=== PATIENT | male | born 1985 | race Caucasian/White ===

== ENCOUNTER 2017-01-26 01:13 | Observation (INO) | payer MEDICAID, SELFPAY ==
[~2017-01-26] VITALS: Ht 177.8 cm; Wt 68.8 kg
[2017-01-26] MEDS ORDERED: LORazepam 1MG TABLET ONE (01:48)
[2017-01-26] MEDS ORDERED: HYDROcodone/APAP 5/325 TABLET ONE (01:49)
[2017-01-26] MEDS ORDERED: LORazepam 1MG TABLET PO ONE (02:00)
[2017-01-26] MEDS ORDERED: HYDROcodone/APAP 5/325 TABLET PO ONE (02:00)
[2017-01-26 03:32] LABS: HEMATOCRIT 48.9 % (39.2-51.8); HEMOGLOBIN 16.7 g/dL (13.7-18.0); WHITE BLOOD COUNT 12.4 x10^3/uL (3.4-10)
[2017-01-26] MEDS ORDERED: NICOTINE 14MG/24 HR PATCH.TD24 ONE (03:44)
[2017-01-26] MEDS ORDERED: ZIPRASIDONE 20 MG INJ IM ONE ×2 (03:44→04:00)
[2017-01-26] MEDS ORDERED: NICOTINE 14MG/24 HR PATCH.TD24 TD ONE (04:00)
[2017-01-26 04:02] LABS: ACETAMINOPHEN < 2 mcg/mL (10-30); BLOOD UREA NITROGEN 25 mg/dL (7-18)
[2017-01-26 04:29] LABS: DAU SCREEN DISCLAIMER
[2017-01-26] MEDS ORDERED: ACETAMINOPHEN 325 MG TABLET PO PRN (07:30)
[2017-01-26] MEDS ORDERED: ZIPRASIDONE 20 MG INJ IM PRN (07:30)
[2017-01-26 08:15] VITALS: BP 110/56
[2017-01-26 08:16] VITALS: BP 110/56
[2017-01-26] MEDS: NICOTINE 14MG/24 HR PATCH.TD24 TD SCH (10:00)
[2017-01-26] MEDS: OLANZAPINE 2.5 MG TABLET PO SCH ×2 (10:04→21:25)
[2017-01-26] MEDS: HYDROcodone/APAP 5/325 TABLET PO PRN ×2 (15:00→21:24)
[2017-01-26] MEDS: LORazepam 0.5MG TABLET PO PRN (17:40)
[2017-01-26] MEDS: IBUPROFEN 200 MG TABLET PO PRN (17:40)
[2017-01-26 20:30] VITALS: BP 115/66
[2017-01-26] MEDS ORDERED: ZOLPIDEM 5MG TABLET PO PRN (21:00)
[2017-01-27] MEDS: LORazepam 0.5MG TABLET PO PRN ×2 (00:50→18:14)
[2017-01-27 05:21] LABS: HEMOGLOBIN 14.9 g/dL (13.7-18.0); WHITE BLOOD COUNT 6.3 x10^3/uL (3.4-10)
[2017-01-27] MEDS: NICOTINE 14MG/24 HR PATCH.TD24 TD SCH (07:30)
[2017-01-27] MEDS: OLANZAPINE 2.5 MG TABLET PO SCH (07:46)
[2017-01-27] MEDS: HYDROcodone/APAP 5/325 TABLET PO PRN (07:47)
[2017-01-27 07:49] VITALS: BP 113/61
[2017-01-27] MEDS: IBUPROFEN 200 MG TABLET PO PRN (15:33)
== END 2017-01-27 18:30 ==
LOC: ED 06:49 → EDIP 06:50 → ED 07:02 → 3E 07:58
PROVIDERS: ADMIT Internal Medicine
DX: F15.950 Other stimulant use, unspecified with stimulant-induced psychotic disorder with delusions (principal); G93.40 Encephalopathy, unspecified; R41.0 Disorientation, unspecified; D72.829 Elevated white blood cell count, unspecified; F19.10 Other psychoactive substance abuse, uncomplicated; F17.200 Nicotine dependence, unspecified, uncomplicated; F10.10 Alcohol abuse, uncomplicated; F22 Delusional disorders; F41.9 Anxiety disorder, unspecified; F12.929 Cannabis use, unspecified with intoxication, unspecified
CPT/HCPCS: 36415; 80048; 80307; 80329; 82040; 85025; 96372; 99285; G0378; J3486; G0480

== ENCOUNTER 2017-02-06 13:07 | Emergency (ER) | payer MEDICAID ==
[~2017-02-06] VITALS: Ht 177.8 cm; Wt 72.0 kg
[2017-02-06 13:08] VITALS: BP 150/84
[2017-02-06] MEDS ORDERED: KETOROLAC 30 MG/1 ML ONE (13:45)
[2017-02-06] MEDS ORDERED: KETOROLAC 30 MG/1 ML IM ONE (14:00)
== END 2017-02-06 14:11 | disposition home or self-care (01) ==
LOC: ED 14:05
DX: M79.652 Pain in left thigh (principal); G89.29 Other chronic pain
CPT/HCPCS: 96372; 99283; J1885

== ENCOUNTER 2017-12-05 12:09 | Emergency (ER) | payer MEDICAID ==
[~2017-12-05] VITALS: Ht 177.8 cm; Wt 70.0 kg
[2017-12-05] MEDS ORDERED: IBUPROFEN 200 MG TABLET ONE (13:42)
[2017-12-05 13:52] VITALS: BP 137/67
[2017-12-05] MEDS ORDERED: IBUPROFEN 800 MG TABLET PO PRN (14:00)
== END 2017-12-05 14:07 | disposition home or self-care (01) ==
LOC: ED 13:59
DX: S63.633A Sprain of interphalangeal joint of left middle finger, initial encounter (principal); F17.200 Nicotine dependence, unspecified, uncomplicated; V19.9XXA Pedal cyclist (driver) (passenger) injured in unspecified traffic accident, initial encounter; Y93.89 Activity, other specified; Y99.8 Other external cause status; Y92.410 Unspecified street and highway as the place of occurrence of the external cause
CPT/HCPCS: 99284

== ENCOUNTER 2017-12-06 09:55 | Emergency (ER) | payer MEDICAID ==
[~2017-12-06] VITALS: Ht 177.8 cm; Wt 70.1 kg
[2017-12-06 09:59] VITALS: BP 148/80
== END 2017-12-06 11:41 | disposition home or self-care (01) ==
LOC: ED 11:35
DX: Z20.6 Contact with and (suspected) exposure to human immunodeficiency virus [HIV] (principal)
CPT/HCPCS: 99281

== ENCOUNTER 2017-12-14 11:17 | Emergency (ER) | payer OTHER, MEDICAID ==
[~2017-12-14] VITALS: Ht 177.8 cm; Wt 78.0 kg
[2017-12-14] MEDS ORDERED: SODIUM CHLORIDE FLUSH 10ML SYR IVF ONE (12:00)
[2017-12-14 12:11] LABS: BASOPHILS # (AUTO) 0.08 x10^3/uL (0-0.1); BASOPHILS % (AUTO) 1 % (0-1); EOSINOPHILS # (AUTO) 0.03 x10^3/uL (0-0.4); EOSINOPHILS % (AUTO) 0 % (1-7); LYMPHOCYTES # (AUTO) 1.61 x10^3/uL (1-3.4); LYMPHOCYTES % (AUTO) 21 % (22-44); MD NO; MEAN CORPUSCULAR HEMOGLOBIN 30.5 pg (27.5-34.5); MEAN CORPUSCULAR HGB CONC 33.8 g/dL (33.2-36.2); MEAN CORPUSCULAR VOLUME 90.1 fL (81-97); MEAN PLATELET VOLUME 8.6 fL (7.4-10.4); MONOCYTES # (AUTO) 0.42 x10^3/uL (0.2-0.8); MONOCYTES % (AUTO) 5 % (2-9); NEUTROPHILS # (AUTO) 5.67 x10^3/uL (1.8-6.8); NEUTROPHILS % (AUTO) 73 % (42-75); PLATELET COUNT 282 x10^3/uL (130-400); RED BLOOD COUNT 5.16 x10^6/uL (4.38-5.82); RED CELL DISTRIBUTION WIDTH 12.7 % (9.4-14.8)
[2017-12-14 12:14] LABS: ALANINE AMINOTRANSFERASE 26 U/L (12-78); ALBUMIN 3.7 g/dL (3.4-5.0); ANION GAP 6 mmol/L (5-15); CALCIUM 8.7 mg/dL (8.5-10.1); CHLORIDE 108 mmol/L (98-107); CREATININE 0.94 mg/dL (0.7-1.3)
[2017-12-14 12:16] LABS: ALKALINE PHOSPHATASE 87 U/L (45-117); BILIRUBIN,TOTAL 0.6 mg/dL (0.2-1.0); SALICYLATE LEVEL < 1.7 mg/dL (2.8-20.0); TOTAL PROTEIN 6.9 g/dL (6.4-8.2)
[2017-12-14 12:18] LABS: AMPHETAMINE SCREEN, URINE Positive (Negative); BARBITURATE SCREEN, URINE Negative (Negative); BENZODIAZEPINE SCREEN, URINE Negative (Negative); CANNABINOID SCREEN, URINE Positive (Negative); COCAINE SCREEN, URINE Negative (Negative); METHADONE SCREEN, URINE Negative (Negative); OPIATE SCREEN, URINE Negative (Negative)
[2017-12-14 12:19] VITALS: BP 128/79
[2017-12-14 12:19] LABS: ACETAMINOPHEN < 2 mcg/mL (10-30)
[2017-12-14] MEDS ORDERED: OLAN15TA9 PO (12:23)
[2017-12-14] MEDS ORDERED: PRAZ1CAP2 PO (12:23)
[2017-12-14] MEDS ORDERED: BUPR100T11 PO (12:23)
[2017-12-14] MEDS ORDERED: CHLO50TA6 PO (12:23)
[2017-12-14] MEDS ORDERED: TRAZ100T15 PO (12:23)
== END 2017-12-14 15:20 | disposition home or self-care (01) ==
LOC: ED 12:14
DX: T14.91XA Suicide attempt, initial encounter (principal); Z79.899 Other long term (current) drug therapy; Y92.149 Unspecified place in prison as the place of occurrence of the external cause; X83.8XXA Intentional self-harm by other specified means, initial encounter; Y93.89 Activity, other specified; Y99.8 Other external cause status
CPT/HCPCS: 36415; 70498; 80053; 80307; 80329; 85025; 99285; G0480

== ENCOUNTER 2018-06-24 10:43 | Emergency (ER) | payer MEDICAID, OTHER ==
[~2018-06-24] VITALS: Ht 167.6 cm; Wt 78.7 kg
[~2018-06-24 10:43] MED LIST: BUPR100T11 PO; CHLO50TA6 PO; OLAN15TA9 PO; PRAZ1CAP2 PO; TRAZ-137 PO
[2018-06-24 10:50] VITALS: BP 109/70
[2018-06-24] MEDS ORDERED: CEFTRIAXONE 250 MG ONE (11:12)
[2018-06-24] MEDS ORDERED: AZITHROMYCIN 500 MG TABLET ONE (11:12)
[2018-06-24] MEDS ORDERED: CEFTRIAXONE 250 MG IM ONE (11:30)
[2018-06-24] MEDS ORDERED: AZITHROMYCIN 250 MG TABLET PO ONE (11:30)
--- NOTE | 2018-06-24 11:48 | NUR ---
Patient/Caregiver given discharge instructions and they have confirmed that they understand the instructions. Patient ambulatory with steady gait. PT LEFT WITH ALL PERSONAL BELONGINGS.
== END 2018-06-24 11:50 | disposition home or self-care (01) ==
LOC: ED 11:25
DX: N34.1 Nonspecific urethritis (principal); B35.6 Tinea cruris
CPT/HCPCS: 87491; 87591; 96372; 99283; J0696

== ENCOUNTER 2020-01-22 12:14 | Emergency (ER) | payer MEDICAID ==
[~2020-01-22] VITALS: Ht 175.3 cm; Wt 74.5 kg
[~2020-01-22 12:14] MED LIST changes: -TRAZ-137 PO; +TRAZ-175 PO
[2020-01-22 12:16] VITALS: BP 146/79
--- NOTE | 2020-01-22 12:22 | NUR ---
PATIENT WALKED BACK FROM TRIAGE WITH CHIEF COMPLAINT OF LEFT THIGH WOUNDS X1 MONTH. PATIENT STATES THEY HAVE NOT GOT ANY BETTER SINCE FIRST APPEARING. PATIENT STATES HE MOVED AND WAS GIVEN SOME BLANKETS FROM A FRIEND WHICH HE DIDN'T WASH AND BELIEVES HE GOT SOMETHING FROM THE BLANKETS. 3 WOUNDS LOCATED ON THE UPPER LEFT THIGH DISTALLY, FEEL WARM TO THE TOUCH, 2 WOUNDS THE SIZE OF QUARTERS AND THE THIRD WOUND THE SIZE OF A NICKEL, SURROUNDING SKIN IS RED.
[2020-01-22] MEDS ORDERED: NEOSPORIN OINT. PKT 1 PACKET ONE (13:03)
--- NOTE | 2020-01-22 13:20 | NUR ---
Patient given discharge instructions and they have confirmed that they understand the instructions, no questions,. Patient ambulatory with steady gait to discharge to desk.
== END 2020-01-22 13:21 | disposition home or self-care (01) ==
LOC: ED 12:50
DX: L03.116 Cellulitis of left lower limb (principal); R11.0 Nausea; R50.9 Fever, unspecified
CPT/HCPCS: 99283

== ENCOUNTER 2020-08-04 09:03 | Emergency (ER) | payer MEDICAID ==
[~2020-08-04] VITALS: Ht 175.3 cm; Wt 71.7 kg
--- NOTE | 2020-08-04 09:33 | NUR ---
PT BROUGHT BACK TO ROOM FROM TRIAGE. PT STATES THAT HE HAS BEEN FEELING SUICIDAL AND DEPRESSED FOR THE PAST COUPLE MONTHS. PT HAS BEEN CUTTING FOREARM WHEN DEPRESSED. PT DOES NOT HAVE ANY ACTIVE PLANS TO KILL HIMSELF. BELONGINGS PLACED IN LOCKER. TIME BROKER NOTIFIED THAT SITTER IS NEEDED.
[2020-08-04 09:47] LABS: BASOPHILS % (AUTO) 1 % (0-1); EOSINOPHILS % (AUTO) 1 % (1-7); LYMPHOCYTES % (AUTO) 21 % (22-44); MEAN CORPUSCULAR HEMOGLOBIN 31.3 pg (27.5-34.5); MEAN CORPUSCULAR HGB CONC 35.2 g/dL (33.2-36.2); MONOCYTES % (AUTO) 8 % (2-9); NEUTROPHILS % (AUTO) 70 % (42-75); PLATELET COUNT 272 x10^3/uL (130-400); RED BLOOD COUNT 5.13 x10^6/uL (4.38-5.82); RED CELL DISTRIBUTION WIDTH 12.6 % (9.4-14.8)
[2020-08-04 09:48] LABS: MD NO
--- NOTE | 2020-08-04 09:55 | NUR ---
PASCUAL Cruz at bedside for evaluation.
[2020-08-04 09:58] LABS: ALBUMIN 3.9 g/dL (3.4-5.0); ANION GAP 6 mmol/L (5-15); CALCIUM 8.8 mg/dL (8.5-10.1); CHLORIDE 105 mmol/L (98-107)
[2020-08-04 10:09] LABS: ALANINE AMINOTRANSFERASE 33 U/L (12-78); ALKALINE PHOSPHATASE 99 U/L (45-117); BILIRUBIN,TOTAL 0.6 mg/dL (0.2-1.0); CREATININE 0.84 mg/dL (0.7-1.3)
[2020-08-04 10:43] LABS: MICROSCOPIC NOT IND
--- NOTE | 2020-08-04 10:44 | NUR ---
ADAMA GARNER POST EVAL PLACED L2K. JAVA J2EE SOFTWARE ENGINEER AWARE, SITTER ORDERED.
[2020-08-04 10:48] LABS: AMPHETAMINE SCREEN, URINE Positive (Negative); BARBITURATE SCREEN, URINE Negative (Negative); BENZODIAZEPINE SCREEN, URINE Negative (Negative); CANNABINOID SCREEN, URINE Negative (Negative); COCAINE SCREEN, URINE Negative (Negative); METHADONE SCREEN, URINE Negative (Negative); OPIATE SCREEN, URINE Negative (Negative)
--- NOTE | 2020-08-04 12:03 | NUR ---
PT STATING THAT HE IS "FREAKING OUT RIGHT NOW AND NEEDS MEDICATIONS." PASCUAL GALAN NOTIFIED.
--- NOTE | 2020-08-04 12:13 | NUR ---
FAXED PT DOCUMENTATION TO LOCAL [facility] FOR ACCEPTANCE.
[2020-08-04 12:25] VITALS: BP 138/70
--- NOTE | 2020-08-04 12:48 | NUR ---
PT EATING LUNCH. SAFETY PRECAUTIONS IN PLACE. SITTER AT BEDSIDE.
--- NOTE | 2020-08-04 13:04 | NUR ---
REPORT GIVEN TO MAGDALENE AT [facility].
--- NOTE | 2020-08-04 14:02 | NUR ---
AWAITNG TRANSPORT TO [facility]. PT RESTING COMFORTABLY, SITTER AT BEDSIDE.
--- NOTE | 2020-08-04 14:57 | NUR ---
BREAK RN- [facility], DIS[facility]GE INSTRUCTIONS REVIEWED. BELONGINGS BAGS GIVEN TO [facility].
== END 2020-08-04 14:59 ==
LOC: ED 09:42
DX: F33.9 Major depressive disorder, recurrent, unspecified (principal); R45.851 Suicidal ideations
CPT/HCPCS: 36415; 80053; 80299; 80307; 80320; 80329; 81003; 84439; 84443; 85025; 99285; G0480

== ENCOUNTER 2020-10-31 11:16 | Emergency (ER) | payer MEDICAID ==
[~2020-10-31] VITALS: Ht 177.8 cm; Wt 67.7 kg
[2020-10-31 11:20] VITALS: BP 127/79
== END 2020-10-31 11:49 | disposition home or self-care (01) ==
LOC: ED 11:46
DX: F20.9 Schizophrenia, unspecified (principal); Z76.0 Encounter for issue of repeat prescription; F32.9 Major depressive disorder, single episode, unspecified; F17.210 Nicotine dependence, cigarettes, uncomplicated
CPT/HCPCS: 99281

== ENCOUNTER 2020-11-22 09:59 | Emergency (ER) | payer MEDICAID ==
[~2020-11-22] VITALS: Ht 177.8 cm; Wt 75.0 kg
[2020-11-22 10:27] VITALS: BP 102/64
== END 2020-11-22 10:37 | disposition home or self-care (01) ==
LOC: ED 10:30
DX: F30.11 Manic episode without psychotic symptoms, mild (principal); Z76.0 Encounter for issue of repeat prescription; F20.9 Schizophrenia, unspecified
CPT/HCPCS: 99281

== ENCOUNTER 2020-12-15 10:07 | Emergency (ER) | payer MEDICAID ==
[~2020-12-15] VITALS: Ht 177.8 cm; Wt 72.9 kg
[2020-12-15 11:11] VITALS: BP 109/64
--- NOTE | 2020-12-15 11:11 | NUR ---
PT REC'VD DISCHARGE INSTRUCTIONS AND EDUCATION. PT HAD NO FURTHER QUESTIONS.
--- NOTE | 2020-12-15 11:15 | NUR ---
PT AMBULATED TO [facility] AREA, STEADY GAIT.
== END 2020-12-15 11:18 | disposition home or self-care (01) ==
LOC: ED 11:05
DX: Z00.00 Encounter for general adult medical examination without abnormal findings (principal); Z76.0 Encounter for issue of repeat prescription
CPT/HCPCS: 99281

== ENCOUNTER 2021-01-05 17:48 | Emergency (ER) | payer MEDICAID ==
[~2021-01-05] VITALS: Ht 177.8 cm; Wt 72.0 kg
[~2021-01-05 17:48] MED LIST changes: +OLAN15TA14 PO; -OLAN15TA9 PO
[2021-01-05 17:51] VITALS: BP 139/81
== END 2021-01-05 18:35 | disposition left against medical advice (07) ==
LOC: ED 18:00
DX: R68.89 Other general symptoms and signs (principal); Z53.21 Procedure and treatment not carried out due to patient leaving prior to being seen by health care provider

== ENCOUNTER 2021-01-10 17:33 | Emergency (ER) | payer MEDICAID ==
[~2021-01-10] VITALS: Ht 177.8 cm; Wt 74.8 kg
[2021-01-10 17:35] VITALS: BP 151/70
--- NOTE | 2021-01-10 17:40 | NUR ---
Denies SI/SA says he no showed his last psych appt and needs refills of his psych meds. Yu evaluated at triage.
== END 2021-01-10 19:30 | disposition home or self-care (01) ==
LOC: ED 17:34
DX: Z76.0 Encounter for issue of repeat prescription (principal)
CPT/HCPCS: 99281

== ENCOUNTER 2021-01-27 08:50 | Emergency (ER) | payer MEDICAID ==
[~2021-01-27] VITALS: Ht 177.8 cm; Wt 76.0 kg
[2021-01-27 08:53] VITALS: BP 129/82
--- NOTE | 2021-01-27 09:20 | NUR ---
assumed care of pt. pt here fot pain to R hand after closing it in a door this AM. pt has no obvious deformity. CMS intact. no open wounds noted xray has been to bedside. hand elevated an ice pack applied for comfort pt updated on POC
--- NOTE | 2021-01-27 09:57 | NUR ---
this patient was D/C by another RN
== END 2021-01-27 10:06 | disposition home or self-care (01) ==
LOC: ED 09:00
DX: S60.221A Contusion of right hand, initial encounter (principal); W23.0XXA Caught, crushed, jammed, or pinched between moving objects, initial encounter; Y93.89 Activity, other specified; Y92.009 Unspecified place in unspecified non-institutional (private) residence as the place of occurrence of the external cause; Y99.8 Other external cause status
CPT/HCPCS: 99283

== ENCOUNTER 2021-01-29 22:28 | Emergency (ER) | payer MEDICAID ==
[~2021-01-29] VITALS: Ht 177.8 cm; Wt 75.6 kg
[2021-01-29] MEDS ORDERED: ACETAMINOPHEN 500 MG TABLET PO ONE (23:00)
[2021-01-29] MEDS ORDERED: SODIUM CHLORIDE FLUSH 10ML SYR IVF ONE (23:00)
[2021-01-29] MEDS ORDERED: SODIUM CHLORIDE 0.9% 1,000ML IVBOLUS ONE (23:00)
[2021-01-29 23:09] LABS: ALANINE AMINOTRANSFERASE 43 U/L (12-78); ALBUMIN 3.2 g/dL (3.4-5.0); ANION GAP 6 mmol/L (5-15); CALCIUM 8.5 mg/dL (8.5-10.1); CHLORIDE 102 mmol/L (98-107); CREATININE 1.11 mg/dL (0.7-1.3)
[2021-01-29 23:11] LABS: ALKALINE PHOSPHATASE 128 U/L (45-117); BILIRUBIN,TOTAL 0.3 mg/dL (0.2-1.0)
[2021-01-29 23:24] LABS: BASOPHILS % (AUTO) 1 % (0-1); EOSINOPHILS % (AUTO) 1 % (1-7); LYMPHOCYTES % (AUTO) 23 % (22-44); MEAN CORPUSCULAR HEMOGLOBIN 31.5 pg (27.5-34.5); MEAN CORPUSCULAR HGB CONC 34.7 g/dL (33.2-36.2); MEAN PLATELET VOLUME 8.4 fL (7.4-10.4); MONOCYTES % (AUTO) 15 % (2-9); NEUTROPHILS % (AUTO) 61 % (42-75); PLATELET COUNT 226 x10^3/uL (130-400); RED BLOOD COUNT 5.17 x10^6/uL (4.38-5.82); RED CELL DISTRIBUTION WIDTH 13.2 % (9.4-14.8)
--- NOTE | 2021-01-30 00:50 | NUR ---
PT REFUSING TYLENOL, REQUESTING TO GO HOME. MD FRENCH
[2021-01-30 01:10] VITALS: BP 118/73
--- NOTE | 2021-01-30 01:10 | NUR ---
Patient given discharge instructions and they have confirmed that they understand the instructions. Patient ambulatory with steady gait. NAD, all questions answered appropriately, denies additional needs at this time. No personal belongings left in room after discharge.
== END 2021-01-30 01:12 | disposition home or self-care (01) ==
LOC: ED 23:29
DX: M79.10 Myalgia, unspecified site (principal); J06.9 Acute upper respiratory infection, unspecified; Z20.822 Contact with and (suspected) exposure to COVID-19; R94.31 Abnormal electrocardiogram [ECG] [EKG]; F17.200 Nicotine dependence, unspecified, uncomplicated
CPT/HCPCS: 36415; 71045; 80053; 85025; 93005; 99285; U0003; U0005

== ENCOUNTER 2021-02-15 10:28 | Emergency (ER) | payer MEDICAID ==
[~2021-02-15] VITALS: Ht 175.3 cm; Wt 73.6 kg
[2021-02-15 10:48] VITALS: BP 136/80
--- NOTE | 2021-02-15 11:52 | NUR ---
DRIVER RECRUITER; PT TO ROOM FROM LOBBY
--- NOTE | 2021-02-15 11:53 | NUR ---
PT AMBULATORY TO ROOM 43 W/ C/O NEEDING A MED REFILL. PT DENIES SI/HI. PT RESTING ON GUWONG.
== END 2021-02-15 12:58 | disposition home or self-care (01) ==
LOC: ED 10:36
DX: F20.9 Schizophrenia, unspecified (principal); Z76.0 Encounter for issue of repeat prescription; F17.210 Nicotine dependence, cigarettes, uncomplicated
CPT/HCPCS: 99406

== ENCOUNTER 2021-02-28 11:18 | Emergency (ER) | payer MEDICAID ==
[~2021-02-28] VITALS: Ht 177.8 cm; Wt 75.9 kg
[2021-02-28] MEDS ORDERED: CEFTRIAXONE 1,000 MG IM ONE (12:00)
[2021-02-28 12:27] LABS: BASOPHILS % (AUTO) 1 % (0-1); EOSINOPHILS % (AUTO) 2 % (1-7); LYMPHOCYTES % (AUTO) 22 % (22-44); MEAN CORPUSCULAR HEMOGLOBIN 31.7 pg (27.5-34.5); MEAN CORPUSCULAR HGB CONC 34.8 g/dL (33.2-36.2); MONOCYTES % (AUTO) 8 % (2-9); NEUTROPHILS % (AUTO) 68 % (42-75); PLATELET COUNT 231 x10^3/uL (130-400); RED BLOOD COUNT 5.08 x10^6/uL (4.38-5.82); RED CELL DISTRIBUTION WIDTH 13.2 % (9.4-14.8)
[2021-02-28 12:38] LABS: ALANINE AMINOTRANSFERASE 27 U/L (12-78); ALBUMIN 3.4 g/dL (3.4-5.0); CALCIUM 8.5 mg/dL (8.5-10.1); CHLORIDE 107 mmol/L (98-107); CREATININE 1.04 mg/dL (0.7-1.3)
[2021-02-28 12:40] LABS: ALKALINE PHOSPHATASE 93 U/L (45-117); BILIRUBIN,TOTAL 0.3 mg/dL (0.2-1.0); TOTAL PROTEIN 6.9 g/dL (6.4-8.2)
[2021-02-28 12:41] LABS: MICROSCOPIC AUTO
[2021-02-28 12:52] LABS: ANION GAP 5 mmol/L (5-15)
[2021-02-28] MEDS ORDERED: CEFTRIAXONE 1,000 MG ONE (13:44)
[2021-02-28] MEDS ORDERED: LIDOCAINE-MPF 1%, 2ML ONE (13:45)
[2021-02-28 13:52] VITALS: BP 130/94
== END 2021-02-28 14:44 | disposition home or self-care (01) ==
LOC: ED 11:48
DX: A54.01 Gonococcal cystitis and urethritis, unspecified (principal); A56.01 Chlamydial cystitis and urethritis; F17.210 Nicotine dependence, cigarettes, uncomplicated
CPT/HCPCS: 36415; 80053; 81001; 85025; 87491; 87591; 96372; 99283; J0696